=== PATIENT | female | born 1990 | race Two or more races ===

== ENCOUNTER 2016-06-24 18:24 | Inpatient (IN) | payer SELFPAY ==
[~2016-06-24] VITALS: Ht 144.8 cm; Wt 61.1 kg
[2016-06-24] MEDS ORDERED: LACTATED RINGER'S 1,000 ML IV SCH (18:36)
[2016-06-24 18:39] VITALS: BMI 29.1
[2016-06-24 18:52] LABS: BASOPHILS % 0.4 % (0.0-2.0); EOSINOPHILS # 0.1 10^3/ul (0.0-0.5); EOSINOPHILS % 0.9 % (0.0-7.0); HEMATOCRIT 36.3 % (37.0-47.0); HEMOGLOBIN 12.6 g/dl (12.0-16.0); LYMPHOCYTES # 1.4 10^3/ul (0.8-2.9); LYMPHOCYTES % 13.3 % (15.0-51.0); MEAN CORPUSCULAR HEMOGLOBIN 32.7 pg (29.0-33.0); MEAN CORPUSCULAR HGB CONC 34.8 g/dl (32.0-37.0); MEAN CORPUSCULAR VOLUME 94.1 fl (82.0-101.0); MONOCYTE # 0.5 10^3/ul (0.3-0.9); MONOCYTES % 4.8 % (0.0-11.0); NEUTROPHIL # 8.2 10^3/ul (1.6-7.5); NEUTROPHILS % 80.6 % (39.0-77.0); PLATELET COUNT 232 10^3/UL (140-440); RED BLOOD COUNT 3.86 10^6/ul (4.20-5.40); UNCORRECTED WBC 10.1 10^3/ul (4.8-10.8); WHITE BLOOD COUNT 10.1 10^3/ul (4.8-10.8)
[2016-06-24 18:57] LABS: CONDITION 1
[2016-06-24 19:00] LABS: INR 0.9; PROTIME 12.1 Sec (12.2-14.2); PT RATIO 0.9
[2016-06-24] MEDS ORDERED: AMPICILLIN 2 GM/NS (PMX) 100 ML IV ONE (19:00)
[2016-06-24] MEDS ORDERED: BUTORPHANOL 2 MG INJ IV PRN (19:00)
[2016-06-24] MEDS ORDERED: LIDOCAINE 1% (MPF) 30 ML INJ INJ PRN (19:00)
[2016-06-24] MEDS ORDERED: MISOPROSTOL 200 MCG TAB PR PRN (19:00)
[2016-06-24] MEDS ORDERED: OXYTOCIN 30 UNITS/LR 500 ML IV PRN (19:00)
[2016-06-24] MEDS ORDERED: IBUPROFEN 600 MG TAB PO PRN (19:00)
[2016-06-24] MEDS ORDERED: CARBOPROST 250 MCG INJ IM PRN (19:00)
[2016-06-24] MEDS ORDERED: METHYLERGONOVINE 0.2 MG INJ IM PRN (19:00)
[2016-06-24] MEDS ORDERED: OXYTOCIN 30 UNITS/LR 500 ML IV SCH ×2 (19:00)
[2016-06-24 19:01] LABS: PARTIAL THROMBOPLASTIN TIME 28.3 Sec (25.0-35.0)
--- NOTE | 2016-06-24 19:08 | HP ---
Date/Time of Note Date/Time of Note DATE: 06/24/16 TIME: 19:05 OB - History Hx of Present Free Text/Dictation 25 years old female 2 para 1 corrected EDC the 22,017 admitted to [facility] in active labor upon admission examination carried out cervical dilatation 9 cm 100% effacement vertex -1 station with bulging membrane Estimated Due Date: Jul 06, 2016 : 2 Para: 1 Care: Good Care Ultrasounds: Normal mid trimester US Obstetrical Complications: None Medical Complications: None Past Family/Social History * Past Medical, Surgical, Family and Obstetric Histories reviewed from chart. Rubella: immune RPR/VDRL: Negative GBS Status: Negative HBsAG: Negative OB Admission Exam Physical Exam HEENT: WNL Heart: Rhythm Normal Lungs: Clear, Equal Abdomen: WNL Extremities: Normal Reflexes: Normal Cervical Dilatation: 9cm Effacement: 100% Station: -1 Membranes: Intact Heart Rate: 130's Accelerations: Accelerations Present Decelerations: No Decelerations Varibility: Moderate Contractions on Admission: < 5 Minutes Apart Intensity: Firm Last 72 hours Lab Results CBC & BMP 06/24/16 18:40 PRASHANTH QUIROZ MD Jun 24, 2016 19:08
--- NOTE | 2016-06-24 19:12 | LDN ---
Date/Time of Note Date/Time of Note DATE: 06/24/16 TIME: 19:09 Delivery Summary Normal spontaneous vaginal delivery of a baby girl from ADRIANA position shoulder delivered without difficulty's body to follow, placenta spontaneous expulsion inspected complete no vaginal or perineal laceration estimated blood loss 250 mL Placenta Delivered: Spontaneously Meconium: none Perineum intact?: Yes Anesthesia type: None Sponge & Needle done & correct: Yes All needle counts correct: Yes Any foreign bodies felt in the: No Problems: Delivery Information Sex Infant Sex: female Apgars 1 Minute: 9 5 Minute: 9 Suctioning Nose & mouth suctioned at dontrell: Yes Delee suction performed: No Umbilical Cord Umbilical cord with: 3 Vessels Cord presentations: no nuchal cord Cord Blood was obtained: Yes PRASHANTH QUIROZ MD Jun 24, 2016 19:11
[2016-06-24 19:56] VITALS: Ht 144.8 cm; Wt 61.1 kg
[2016-06-24 21:00] VITALS: BP 124/75; PULSE 62; RESP 19
[2016-06-24] MEDS ORDERED: ONDANSETRON 4 MG INJ IV PRN (21:30)
[2016-06-24] MEDS ORDERED: ACETAMINOPHEN/CODEINE #3 TAB PO PRN ×2 (21:30)
[2016-06-24] MEDS ORDERED: OXYCODONE/ASPIRIN (4.88/325) TAB PO PRN ×2 (21:30)
[2016-06-24] MEDS: SENNA/DOCUSATE NA (8.6MG/50MG) TAB PO SCH (21:30)
[2016-06-24] MEDS ORDERED: BENZOCAINE 20% 56 ML SPRAY TOP PRN (21:30)
[2016-06-24] MEDS ORDERED: ACETAMINOPHEN 325 MG TAB PO PRN (21:30)
[2016-06-24] MEDS ORDERED: WITCH HAZEL/GLYCERIN PAD PR PRN (21:30)
[2016-06-24] MEDS ORDERED: DIBUCAINE 1% 30 GM OINT PR PRN (21:30)
[2016-06-24] MEDS ORDERED: LANOLIN 7 GM TUBE TOP PRN (21:30)
[2016-06-24] MEDS ORDERED: AMPICILLIN 1 GM/NS (PMX) 50 ML IV SCH (23:00)
[2016-06-24] MEDS: OXYTOCIN 30 UNITS/LR 500 ML IV SCH (23:18)
[2016-06-24] MEDS: IBUPROFEN 600 MG TAB PO SCH (23:19)
[2016-06-25 00:05] VITALS: BP 107/64; PULSE 69; RESP 18
[2016-06-25] MEDS: OXYTOCIN 30 UNITS/LR 500 ML IV SCH (01:18)
[2016-06-25 03:50] VITALS: BP_SYST 114; BP_SYST 130; BP_DIAS 36; BP_DIAS 69; PULSE 36; PULSE 65; RESP 18
[2016-06-25] MEDS: IBUPROFEN 600 MG TAB PO SCH ×3 (05:22→17:15)
[2016-06-25 07:30] VITALS: BP 118/71; PULSE 58; RESP 18
[2016-06-25 08:11] LABS: BASOPHIL # 0.1 10^3/ul (0.0-0.1); BASOPHILS % 0.5 % (0.0-2.0); EOSINOPHILS # 0.3 10^3/ul (0.0-0.5); EOSINOPHILS % 1.8 % (0.0-7.0); LYMPHOCYTES # 2.5 10^3/ul (0.8-2.9); LYMPHOCYTES % 16.5 % (15.0-51.0); MEAN CORPUSCULAR HEMOGLOBIN 32.5 pg (29.0-33.0); MEAN CORPUSCULAR HGB CONC 34.3 g/dl (32.0-37.0); MEAN CORPUSCULAR VOLUME 94.9 fl (82.0-101.0); MEAN PLATELET VOLUME 10.4 fl (7.4-10.4); MONOCYTE # 0.8 10^3/ul (0.3-0.9); MONOCYTES % 5.3 % (0.0-11.0); NEUTROPHIL # 11.6 10^3/ul (1.6-7.5); NEUTROPHILS % 75.9 % (39.0-77.0); PLATELET COUNT 226 10^3/UL (140-440); RED BLOOD COUNT 3.69 10^6/ul (4.20-5.40); RED CELL DISTRIBUTION WIDTH 13.1 % (11.5-14.5); UNCORRECTED WBC 15.3 10^3/ul (4.8-10.8); WHITE BLOOD COUNT 15.3 10^3/ul (4.8-10.8)
[2016-06-25 08:21] LABS: CONDITION 1
[2016-06-25] MEDS: SENNA/DOCUSATE NA (8.6MG/50MG) TAB PO SCH (08:53)
[2016-06-25 16:00] VITALS: BP 105/62; PULSE 68; RESP 19
--- NOTE | 2016-06-25 18:34 | PN ---
Date/Time of Note Date/Time of Note DATE: 06/25/16 TIME: 18:33 OB Subjective Subjective Subjective Post normal vaginal delivery day 1 Vital sign is stable afebrile abdomen soft uterus firm lochia normal extremity normal Laboratory Tests Test 06/24/16 18:40 06/25/16 07:15 Activated Partial Thromboplast Time 28.3Sec Basophils # 0.010^3/ul 0.110^3/ul Basophils % 0.4% 0.5% Eosinophils # 0.110^3/ul 0.310^3/ul Eosinophils % 0.9% 1.8% Hematocrit 36.3% 35.0% Hemoglobin 12.6g/dl 12.0g/dl Hepatitis B Surface Antigen NEGATIVE INR International Normalized Ratio 0.90 Lymphocytes # 1.410^3/ul 2.510^3/ul Lymphocytes % 13.3% 16.5% Mean Corpuscular Hemoglobin 32.7pg 32.5pg Mean Corpuscular Hemoglobin Concent 34.8g/dl 34.3g/dl Mean Corpuscular Volume 94.1fl 94.9fl Mean Platelet Volume 10.0fl 10.4fl Monocytes # 0.510^3/ul 0.810^3/ul Monocytes % 4.8% 5.3% Neutrophils # 8.210^3/ul 11.610^3/ul Neutrophils % 80.6% 75.9% Nucleated Red Blood Cells # 0.010^3/ul 0.010^3/ul Nucleated Red Blood Cells % 0.0/100WBC 0.0/100WBC Platelet Count 44618^3/UL 33392^3/UL Prothrombin Time 12.1Sec Prothrombin Time Ratio 0.9 Rapid Plasma Reagin NONREACTIVE Red Blood Count 3.8610^6/ul 3.6910^6/ul Red Cell Distribution Width 13.0% 13.1% White Blood Count 10.110^3/ul 15.310^3/ul Blood Morphology Comment Current Medications Medications (Trade) Dose Ordered Sig/Tressa Route PRN Reason Start Time Stop Time Status Last Admin Dose Admin Lactated Ringer's 1,000 ml @ 125 mls/hr Q8H IV 06/24/16 18:36 06/24/16 21:20 DC 06/24/16 18:53 Ampicillin 100 ml @ 100 mls/hr ONCE ONCE IV 06/24/16 19:00 06/24/16 19:27 DC Ampicillin (Ampicillin 1 Gm/ NS (Pmx)) 50 ml @ 100 mls/hr Q4H IV 06/24/16 23:00 06/24/16 23:00 DC Butorphanol Tartrate (Stadol) 2 mg Q2H PRN IV PAIN 06/24/16 19:00 06/24/16 21:20 DC Lidocaine 30 ml 30 ml ONCE PRN INJ EPISIOTOMY/TEARING 06/24/16 19:00 06/24/16 21:20 DC Oxytocin/Lactated Ringer's 500 ml @ 125 mls/hr ONCE -MAY REPEAT X1 IV 06/24/16 19:00 06/24/16 21:20 DC Oxytocin/Lactated Ringer's 500 ml @ 125 mls/hr ONCE IV 06/24/16 19:00 06/24/16 21:20 DC Ibuprofen 600 mg 600 mg ONCE PRN PO Mild Pain (Pain Score 1-3) 06/24/16 19:00 06/24/16 21:21 DC Oxytocin/Lactated Ringer's 500 ml @ 0 mls/hr ONCE PRN IV For Hemorrhage Management 06/24/16 19:00 06/24/16 21:21 DC Methylergonovine Maleate (Methergine) 0.2 mg ONCE PRN IM VAGINAL BLEEDING 06/24/16 19:00 06/24/16 21:21 DC Carboprost Tromethamine (Hemabate) 250 mcg ONCE PRN IM VAGINAL BLEEDING 06/24/16 19:00 06/24/16 21:21 DC Misoprostol 1000 mcg 1,000 mcg ONCE PRN CO VAGINAL BLEEDING 06/24/16 19:00 06/24/16 21:21 DC Oxytocin/Lactated Ringer's 500 ml @ 125 mls/hr Q4H IV 06/24/16 21:18 06/25/16 05:17 DC 06/24/16 23:18 Ibuprofen (Motrin) 600 mg Q6 PO 06/25/16 00:00 06/25/16 17:15 Acetaminophen (Tylenol Tab) 650 mg Q4H PRN PO PAIN LEVEL 1-5 06/24/16 21:30 Acetaminophen/ Codeine Phosphate (Tylenol No.3) 1 tab Q4H PRN PO PAIN LEVEL 1-5 06/24/16 21:30 Acetaminophen/ Codeine Phosphate (Tylenol No.3) 2 tab Q4H PRN PO PAIN LEVEL 6-10 06/24/16 21:30 Oxycodone/Aspirin (Percodan) 1 tab Q3H PRN PO PAIN LEVEL 1-5 06/24/16 21:30 Oxycodone/Aspirin (Percodan) 2 tab Q3H PRN PO PAIN LEVEL 6-10 06/24/16 21:30 Ondansetron HCl (Zofran Inj) 4 mg Q6H PRN IV NAUSEA AND/OR VOMITING 06/24/16 21:30 Senna/Docusate Sodium (Senokot-S) 1 tab BID PO 06/24/16 21:30 06/25/16 08:53 Witch Alesia/ Glycerin (Tucks Pads) 1 pad BEDSIDE MEDICATION PRN CO HEMORRHOID/EPISIOTMY PAIN 06/24/16 21:30 06/24/16 23:20 Benzocaine (Dermoplast [place]) 1 spray BEDSIDE MEDICATION PRN TOP HEMORRHOID/EPISIOTMY PAIN 06/24/16 21:30 06/24/16 23:20 Dibucaine (Nupercainal) 1 applic BEDSIDE MEDICATION PRN CO HEMORRHOID/EPISIOTMY PAIN 06/24/16 21:30 Lanolin ([id number]) 1 applic BEDSIDE MEDICATION PRN TOP BEDSIDE FOR MIREYA TO NIPPLES 06/24/16 21:30 06/24/16 23:19 Measles/Mumps/ Rubella Vaccine Live (Mmr Ii Vaccine) 0.5 ml ONCE ONCE SC* 06/26/16 09:00 06/26/16 09:01 Influenza Virus Vaccine (Fluzone) 0.5 ml ONCE ONCE IM* 06/26/16 09:00 06/26/16 09:01 PRASHANTH QUIROZ MD Jun 25, 2016 18:34
[2016-06-25 20:30] VITALS: BP 103/53; PULSE 63; RESP 17
[2016-06-26] MEDS: IBUPROFEN 600 MG TAB PO SCH ×3 (00:13→11:08)
[2016-06-26] MEDS: SENNA/DOCUSATE NA (8.6MG/50MG) TAB PO SCH ×2 (00:14→08:33)
[2016-06-26 06:01] VITALS: BP 108/64; PULSE 65; RESP 18
[2016-06-26 07:40] VITALS: BP 87/51; PULSE 56; RESP 16
[2016-06-26] MEDS ORDERED: MEASLES,MUMPS,RUBELLA VACCINE INJ SC* ONE (09:00)
[2016-06-26] MEDS ORDERED: INFLUENZA VIRUS VACCINE 0.5 ML (DISPENSING) IM* ONE (09:00)
--- NOTE | 2016-06-26 10:05 | PD.PPDC ---
STRAIGHT EDGER Discharge Instruction Condition Patient Condition: Good Diet Diet: Resume Regular Diet Activity/Restrictions Activity: Normal Activity May Shower Follow-up Follow-up with Physician: 2, Week/Weeks Return to clinic for FUR STYLIST Instructions: Fever greater than 101 Worsening abdominal pain More than 2 pads per hour OB Instructions: Breast Tenderness Blurried Vision Headache PRASHANTH QUIROZ MD Jun 26, 2016 10:05
--- NOTE | 2016-06-26 10:09 | DS ---
Date/Time of Note Date/Time of Note DATE: 06/26/16 TIME: 10:06 Obstetrical Discharge Record Final Diagnosis Final Diagnosis: Term delivered Vaginal Delivery Obstetrical Delivery: Spontaneous Condition on Discharge Physical Assessment Last Vitals: Post normal vaginal delivery day 2 Abdomen soft uterus firm lochia normal extremity normal patient discharge home with follow-up instruction to make appointment to be seen at the clinic in 2 weeks Current Medications Medications (Trade) Dose Ordered Sig/Tressa Route PRN Reason Start Time Stop Time Status Last Admin Dose Admin Lactated Ringer's 1,000 ml @ 125 mls/hr Q8H IV 06/24/16 18:36 06/24/16 21:20 DC 06/24/16 18:53 Ampicillin 100 ml @ 100 mls/hr ONCE ONCE IV 06/24/16 19:00 06/24/16 19:27 DC Ampicillin (Ampicillin 1 Gm/ NS (Pmx)) 50 ml @ 100 mls/hr Q4H IV 06/24/16 23:00 06/24/16 23:00 DC Butorphanol Tartrate (Stadol) 2 mg Q2H PRN IV PAIN 06/24/16 19:00 06/24/16 21:20 DC Lidocaine 30 ml 30 ml ONCE PRN INJ EPISIOTOMY/TEARING 06/24/16 19:00 06/24/16 21:20 DC Oxytocin/Lactated Ringer's 500 ml @ 125 mls/hr ONCE -MAY REPEAT X1 IV 06/24/16 19:00 06/24/16 21:20 DC Oxytocin/Lactated Ringer's 500 ml @ 125 mls/hr ONCE IV 06/24/16 19:00 06/24/16 21:20 DC Ibuprofen 600 mg 600 mg ONCE PRN PO Mild Pain (Pain Score 1-3) 06/24/16 19:00 06/24/16 21:21 DC Oxytocin/Lactated Ringer's 500 ml @ 0 mls/hr ONCE PRN IV For Hemorrhage Management 06/24/16 19:00 06/24/16 21:21 DC Methylergonovine Maleate (Methergine) 0.2 mg ONCE PRN IM VAGINAL BLEEDING 06/24/16 19:00 06/24/16 21:21 DC Carboprost Tromethamine (Hemabate) 250 mcg ONCE PRN IM VAGINAL BLEEDING 06/24/16 19:00 06/24/16 21:21 DC Misoprostol 1000 mcg 1,000 mcg ONCE PRN NE VAGINAL BLEEDING 06/24/16 19:00 06/24/16 21:21 DC Oxytocin/Lactated Ringer's 500 ml @ 125 mls/hr Q4H IV 06/24/16 21:18 06/25/16 05:17 DC 06/24/16 23:18 Ibuprofen (Motrin) 600 mg Q6 PO 06/25/16 00:00 06/26/16 05:44 Acetaminophen (Tylenol Tab) 650 mg Q4H PRN PO PAIN LEVEL 1-5 06/24/16 21:30 Acetaminophen/ Codeine Phosphate (Tylenol No.3) 1 tab Q4H PRN PO PAIN LEVEL 1-5 06/24/16 21:30 Acetaminophen/ Codeine Phosphate (Tylenol No.3) 2 tab Q4H PRN PO PAIN LEVEL 6-10 06/24/16 21:30 Oxycodone/Aspirin (Percodan) 1 tab Q3H PRN PO PAIN LEVEL 1-5 06/24/16 21:30 Oxycodone/Aspirin (Percodan) 2 tab Q3H PRN PO PAIN LEVEL 6-10 06/24/16 21:30 Ondansetron HCl (Zofran Inj) 4 mg Q6H PRN IV NAUSEA AND/OR VOMITING 06/24/16 21:30 Senna/Docusate Sodium (Senokot-S) 1 tab BID PO 06/24/16 21:30 06/26/16 08:33 Witch Alesia/ Glycerin (Tucks Pads) 1 pad BEDSIDE MEDICATION PRN NE HEMORRHOID/EPISIOTMY PAIN 06/24/16 21:30 06/24/16 23:20 Benzocaine (Dermoplast [place]) 1 spray BEDSIDE MEDICATION PRN TOP HEMORRHOID/EPISIOTMY PAIN 06/24/16 21:30 06/24/16 23:20 Dibucaine (Nupercainal) 1 applic BEDSIDE MEDICATION PRN NE HEMORRHOID/EPISIOTMY PAIN 06/24/16 21:30 Lanolin ([id number]) 1 applic BEDSIDE MEDICATION PRN TOP BEDSIDE FOR MIREYA TO NIPPLES 06/24/16 21:30 06/24/16 23:19 Measles/Mumps/ Rubella Vaccine Live (Mmr Ii Vaccine) 0.5 ml ONCE ONCE SC* 06/26/16 09:00 06/26/16 09:01 DC Influenza Virus Vaccine (Fluzone) 0.5 ml ONCE ONCE IM* 06/26/16 09:00 06/26/16 09:01 DC 06/26/16 08:35 Voiding: Yes Bowel Movement: Yes Breast: Soft, non-tender, Filling Fundus: Firm Calf Tenderness: No Patient Condition: Good PRASHANTH QUIROZ MD Jun 26, 2016 10:08
[2016-06-26] MEDS ORDERED: DIPHTH/TET/ACEL PERTUSS (ADULT) 0.5 ML VIAL IM* ONE ×2 (10:30)
== END 2016-06-26 13:15 | disposition home or self-care (01) | DRG 775 ==
LOC: L-D 18:24 → OBT 18:24 → L-D 18:37 → PP1 20:55
PROVIDERS: ADMIT Obstetrics & Gynecology; ATTEND Obstetrics & Gynecology
PROC: 10E0XZZ Delivery of Products of Conception, External Approach (ICD-10-PCS; principal; 2016-06-24)
PROC: 3E00X4Z Introduction of Serum, Toxoid and Vaccine into Skin and Mucous Membranes, External Approach (ICD-10-PCS; 2016-06-26)
DX: O80 Encounter for full-term uncomplicated delivery (principal); Z23 Encounter for immunization; Z3A.37 37 weeks gestation of pregnancy; Z37.0 Single live birth
CPT/HCPCS: 85025; 85610; 85730; 86592; 86900; 86901; 87340; 90686; 90715; 99464; G0463; J2590; J7120